=== PATIENT | male | born 1960 | race Caucasian/White ===

== ENCOUNTER 2017-04-03 13:45 | Outpatient (CLI) | payer OTHER ==
--- NOTE | 2017-04-03 16:35 | RAD ---
CERVICAL SPINE AP AND LATERAL STANDARD 04/03/17 HISTORY: Disability evaluation, M50.30. COMPARISON: None. FINDINGS: Extensive periodontal disease. Severe degenerative disc space disease at C4-5, C5-6 and C6-7 with la rge anterior osteophyte formation, uncinate process hypertrophy. There is also extensive facet arthr opathy at C2-3, C3-4 as well as moderate facet arthropathy at C4-5 and C5-6 and C6-7. No acute fracture is appreciated. Open mouth odontoid view is normal. IMPRESSION: Extensive spondylosis as described above. No acute fracture or malalignment. POS: [facility]
== END 2017-04-03 13:46 | disposition home or self-care (01) ==
LOC: NAV RAD 13:45
PROVIDERS: ATTEND Family Medicine
DX: M50.30 Other cervical disc degeneration, unspecified cervical region (principal); M47.812 Spondylosis without myelopathy or radiculopathy, cervical region
CPT/HCPCS: 72040